=== PATIENT | female | born 1975 | race Two or more races ===

== ENCOUNTER 2023-06-19 03:24 | Emergency (ER) | payer OTHER ==
[~2023-06-19] VITALS: Ht 162.6 cm; Wt 67.6 kg
[2023-06-19] MEDS ORDERED: HYOSCYAMINE SULFATE 0.125 MG TAB.SUBL SL STA (05:19)
[2023-06-19] MEDS ORDERED: MAG HYDROX/ALUMINUM HYD/SIMETH 30 ML BLIST.PACK PO STA (05:20)
[2023-06-19 06:28] LABS: HEMATOCRIT 42.1 % (36.0-45.00); HEMOGLOBIN 14.7 g/dL (12.0-15.00); MEAN CELL VOLUME 88.3 fL (80.00-100.00); MEAN CORPUSCULAR HEMOGLOBIN 30.8 pg (27.00-32.0); MEAN CORPUSCULAR HGB CONC 34.9 g/dl (32.0-36.0); PLATELET COUNT 329 K/uL (150-450); RED BLOOD COUNT 4.77 M/uL (4.00-6.00)
[2023-06-19 06:32] LABS: AMYLASE 39 U/L (25-115); LIPASE 19 U/L (13-75)
== END 2023-06-19 10:58 | disposition home or self-care (01) ==
LOC: ER 03:24
PROVIDERS: General Practice
DX: R10.13 Epigastric pain (principal); R10.9 Unspecified abdominal pain; Z88.6 Allergy status to analgesic agent; Z91.013 Allergy to seafood